=== PATIENT | female | born 1985 ===

== ENCOUNTER 2020-12-09 23:28 | Emergency (ER) | payer OTHER ==
[2020-12-10 00:09] VITALS: BP 128/65
[2020-12-10] MEDS ORDERED: SODIUM CHLORIDE 0.9% 1000 ML 1,000 ML IV ONE (00:42)
[2020-12-10] MEDS ORDERED: ACETAMINOPHEN 500 MG TAB PO ONE (00:42)
[2020-12-10 00:50] LABS: Hematocrit 20.5 % (30.3-42.9); Hemoglobin 7.2 gm/dl (10.1-14.3); Mean Corpuscular HGB Conc 35 % (30-34); Mean Corpuscular Volume 88 fl (79-97); Platelet Count 382 K/mm3 (140-440); Red Blood Count 2.34 M/mm3 (3.65-5.03); Red Cell Distribution Width 13.9 % (13.2-15.2)
[2020-12-10 00:59] LABS: Alanine Aminotransferase 35 units/L (7-56); Albumin 3.7 g/dL (3.9-5); Blood Urea Nitrogen 11 mg/dL (7-17); Calcium 8.8 mg/dL (8.4-10.2); Hemolysis Index 1
[2020-12-10 01:01] LABS: BUN/Creatinine Ratio 22
--- NOTE | 2020-12-10 02:13 | Emergency Department Report ---
ED General Adult HPI - General Chief complaint: Dizziness Stated complaint: DEHYDRATION/DIZZY Source: patient Mode of arrival: Wheelchair Limitations: No Limitations - History of Present Illness Initial comments: Patient is a 35-year-old female with a history of asthma who presents to the ED with complaint of generalized abdominal pain, intermittent nausea and vomiting, generalized weakness and lightheadedness for the last 6 days. Patient states that she is 6 days s/p abdominoplasty surgery and has been having the symptoms at home intermittently, worse in the last 24 hours. Patient states that she is currently taking pain medications and antibiotics prophylactically but decided come to the ED for evaluation due to her worsening generalized weakness, lightheadedness and abdominal pain. Patient denies dizziness, syncope, chest pain, shortness of breath, diarrhea, dysuria, urinary frequency and urgency, headache, change in vision, palpitations, cough or back pain. MD Complaint: abdominal pain, post-op pain, nausea, vomiting, lightheadedness and weaknes -: Sudden, days(s) (6) Location: abdomen Radiation: non-radiation Severity scale (0 -10): 4 Quality: aching, sharp Consistency: constant Improves with: none Worsens with: none Associated Symptoms: denies other symptoms, loss of appetite, malaise, nause a/vomiting, weakness. denies: confusion, chest pain, cough, diaphoresis, fever/chills, headaches, rash, seizure, shortness of breath, syncope, other Treatments Prior to Arrival: none - Related Data Allergies Allergy/AdvReac Type Severity Reaction Status Date / Time No Known Allergies Allergy Unverified 12/10/20 00:08 ED Review of Systems ROS: Stated complaint: DEHYDRATION/DIZZY Other details as noted in HPI Constitutional: chills, fever, malaise, weakness Eyes: denies: eye pain, eye discharge, vision change ENT: denies: ear pain, throat pain Respiratory: denies: cough, shortness of breath, wheezing Cardiovascular: denies: chest pain, palpitations Endocrine: no symptoms reported Gastrointestinal: abdominal pain, nausea, vomiting. denies: diarrhea Genitourinary: denies: urgency, dysuria, discharge Musculoskeletal: arthralgia, myalgia. denies: back pain, joint swelling Skin: denies: rash, lesions Neurological: other (lightheadedness). denies: headache, weakness, paresthesias Psychiatric: denies: anxiety, depression Hematological/Lymphatic: denies: easy bleeding, easy bruising ED Past Medical Hx - Past Medical History Hx Asthma: Yes - Social History Smoking Status: Never Smoker ED Physical Exam - General Limitations: No Limitations General appearance: alert, in no apparent distress - Head Head exam: Present: atraumatic, normocephalic, normal inspection - Eye Eye exam: Present: normal appearance, PERRL, EOMI Pupils: Present: normal accommodation - ENT ENT exam: Present: normal exam, normal orophraynx, mucous membranes moist, TM's normal bilaterally, normal external ear exam - Neck Neck exam: Present: normal inspection, full ROM - Respiratory Respiratory exam: Present: normal lung sounds bilaterally. Absent: respiratory distress, wheezes, rales, rhonchi, chest wall tenderness, accessory muscle use, decreased breath sounds, prolonged expiratory - Cardiovascular Cardiovascular Exam: Present: normal rhythm, tachycardia, normal heart sounds. Absent: systolic murmur, diastolic murmur, rubs, gallop - GI/Abdominal GI/Abdominal exam: Present: soft, tenderness (palpable epigastric and periumbilical moderate tenderness at surgical site, no sign of infection; HAKAN drains serosanguinous fluids), normal bowel sounds. Absent: guarding, rebound, hyperactive bowel sounds, hypoactive bowel sounds - Extremities Exam Extremities exam: Present: normal inspection, full ROM, normal capillary refill - Back Exam Back exam: Present: normal inspection, full ROM. Absent: tenderness, CVA tenderness (R), CVA tenderness (L), muscle spasm, paraspinal tenderness, vertebral tenderness - Neurological Exam Neurological exam: Present: alert, oriented X3, CN II-XII intact, normal gait, reflexes normal - Psychiatric Psychiatric exam: Present: normal affect, normal mood - Skin Skin exam: Present: warm, dry, intact, normal color. Absent: rash ED Course Vital Signs 12/10/20 00:08 Temperature 99.2 F Pulse Rate 108 H Respiratory 18 Rate Blood Pressure 128/65 O2 Sat by Pulse 100 Oximetry ED Medical Decision Making - Lab Data Result diagrams: 12/10/20 00:12 12/10/20 00:12 - Medical Decision Making This is a 35-year-old female with a history of asthma who presents to the ED with complaint of generalized abdominal pain, intermittent nausea and vomiting, generalized weakness and lightheadedness for the last 6 days. Patient states that she is 6 days s/p abdominoplasty surgery and has been having the symptoms at home intermittently, worse in the last 24 hours. Patient states that she is currently taking pain medications and antibiotics prophylactically but decided come to the ED for evaluation due to her worsening generalized weakness, lightheadedness and abdominal pain. In the ED, patient is alert and oriented x3 and is not in any distress but tachycardic and afebrile in triage. Lab test results were reviewed and showed acute leukocytosis of 11,500, H&H of 7 .2 and 20.5 respectively, and mild hyponatremia 134 mmol/L. The rest of lab test results are nonactionable. Patient left the ED AGAINST MEDICAL ADVICE before all the treatment procedures could be initiated including normal saline 1 L IV bolus that was ordered, Tylenol for pain and blood cultures. Patient did not sign any paperwork as she left the ED. - Differential Diagnosis post-op wound infection; wound dehiscion; cellulitis; PE; sepsis Critical care attestation.: If time is entered above; I have spent that time in minutes in the direct care of this critically ill patient, excluding procedure time. ED Disposition Clinical Impression: Generalized weakness, Postoperative generalized abdominal pain, Postoperative sepsis Disposition: DC-07 LEFT AGAINST MED ADVICE Is pt being admited?: No Does the pt Need Aspirin: No Condition: Undetermined Time of Disposition: 02:15 Print Language: ICELANDIC
[2020-12-10 03:06] LABS: Anisocytosis 1+; Platelet Estimate Consistent w Auto; Total Cells Counted 100
== END 2020-12-10 01:50 | disposition left against medical advice (07) ==
LOC: ED 23:28
DX: T81.44XA Sepsis following a procedure, initial encounter (principal); G89.18 Other acute postprocedural pain; R11.2 Nausea with vomiting, unspecified; J45.909 Unspecified asthma, uncomplicated; Y92.89 Other specified places as the place of occurrence of the external cause; Z79.899 Other long term (current) drug therapy
CPT/HCPCS: 36415; 80053; 85007; 85025; 99283